=== PATIENT | female | born 1970 ===

== ENCOUNTER → 2020-09-18 | Outpatient (CLI) | payer OTHER | END | disposition home or self-care (01) | LOC: LAB SHORT 16:55 → LAB 16:55 | DX: N39.0 Urinary tract infection, site not specified (principal) | CPT/HCPCS: 87086 ==

== ENCOUNTER 2022-04-22 13:02 | Day surgery (SDC) | payer OTHER ==
[~2022-04-22] VITALS: Ht 177.8 cm; Wt 94.5 kg
--- NOTE | 2022-04-22 14:47 | NUR ---
04/22/22 [id number] Avril Spear RN DISCUSSED RESPONSE TO QUESTIONNAIRE WITH PATIENT ABOUT ANSWER OF "YES" TO BEING CONCERNED ABOUT SAFETY AT HOME. PATIENT STATES HER HAS BEEN VIOLENT TOWARD HER FOLLOWING HIS STROKE AND OTHER MEDICAL ISSUES. SHE STATES SHE HAS PREVIOUSLY CONTACTED THE POLICE, THIS MONTH BUT THAT SHE HAS TO CARE FOR HIM AND HER PARENTS AND HE HAS NO WHERE TO GO. RN ASKED PATIENT IF RN COULD PROVIDE HER WITH RESOURCES, CALL PROPER AUTHORITIES ON HER BEHALF, OR PROVIDE ASSISTANCE IN OTHER WAYS. PATIENT DECLINED RESOURCES/CALL TO AUTHORITIES OR ANY OTHER ASSISTANCE THAT RN COULD PROVIDE. PATIENT STATES APPRECIATION FOR CONCERN. RN CONSULTED CHARGE NURSE REGARDING SITUATION. PROVIDE
--- NOTE | 2022-04-22 15:00 | NUR ---
04/22/22 Katelyn Su 0.15ML OF EPI 1MG/ML ADDED TO 30ML OF ROPIVICAINE 0.5% TO CREATE A LOCAL SOLUTION OF ROPIVICAINE 0.5% WITH EPI 1:200,000.
--- NOTE | 2022-04-22 18:56 | NUR ---
04/22/221855 Oscar Fernández PT EXPERIENCED NAUSEA THROUGHOUT STAY IN STEP DOWN. SHE VOMITED TWICE GREEN EMESIS. PT REPORTED 8/10 PAIN AND NAUSEA AT TIME OF DISCHARGE. HOWEVER, SHE REFUSED FURTHER MEDICATION AND EXPRESSED READINESS TO RETURN HOME.
== END 2022-04-22 18:35 | disposition home or self-care (01) ==
LOC: ORSCSDS 13:02
PROVIDERS: Podiatrist Foot & Ankle Surgery
PROC: 0L8N0ZZ Division of Right Lower Leg Tendon, Open Approach (ICD-10-PCS; principal; 2022-04-22 14:30)
PROC: 0LQV0ZZ Repair Right Foot Tendon, Open Approach (ICD-10-PCS; principal; 2022-04-22 14:30)
PROC: 0QBL0ZZ Excision of Right Tarsal, Open Approach (ICD-10-PCS; principal; 2022-04-22 14:30)
DX: M76.61 Achilles tendinitis, right leg (principal); M24.571 Contracture, right ankle; M76.71 Peroneal tendinitis, right leg
CPT/HCPCS: A9270; C1713; J0171; J1100; J2250; J2405; J2704; J2765; J2795; J3010; J7120

== ENCOUNTER → 2023-01-12 | Outpatient (CLI) | payer OTHER ==
[2023-01-13 15:32] LABS: Stool Occult Bld Immuno 1 Negative (NEGATIVE)
== END | disposition home or self-care (01) ==
LOC: LAB 08:30 → LAB SHORT 08:30
PROVIDERS: Family Medicine
DX: Z12.11 Encounter for screening for malignant neoplasm of colon (principal)
CPT/HCPCS: G0328